=== PATIENT | female | born 1970 | race Native Hawaiian/Other Pacific Islander ===

== ENCOUNTER 2020-02-29 08:19 | Outpatient (CLI) | payer BC | END 2020-02-29 21:39 | disposition home or self-care (01) | LOC: LABW 08:19 | DX: R60.0 Localized edema (principal) | CPT/HCPCS: 36415; 83880 ==

== ENCOUNTER 2020-05-29 05:40 | Outpatient (CLI) | payer BC ==
[2020-05-29 07:13] LABS: POTASSIUM 4.1 mmol/L (3.6-5.2)
[2020-05-29 07:20] LABS: PLATELET COUNT 422 K/uL (152-353)
== END 2020-05-29 19:41 | disposition home or self-care (01) ==
LOC: LABW 05:40
PROVIDERS: ATTEND Nurse Practitioner Family
DX: R60.0 Localized edema (principal)
CPT/HCPCS: 36415; 80053; 83880; 85027